=== PATIENT | male | born 1935 | race Caucasian/White ===

== ENCOUNTER 2024-06-06 16:00 | Emergency (ER) | payer OTHER ==
[2024-06-06 16:53] VITALS: BP 112/56; PULSE 91; RESP 18; TEMP 98.3; BMI 23.8
== END 2024-06-06 17:00 | disposition home or self-care (01) ==
LOC: JER 16:00
DX: F03.90 Unspecified dementia, unspecified severity, without behavioral disturbance, psychotic disturbance, mood disturbance, and anxiety (principal)
CPT/HCPCS: 99283-25